=== PATIENT | male | born 1990 ===

== ENCOUNTER 2017-10-16 07:32 | Emergency (ER) | payer MEDICAID ==
--- NOTE | 2017-10-16 08:12 | C.PDOC ---
History Of Present Illness 27 y/o male presents to ED c/o anxiety. Pt states that he was unable to sleep last night after being involved in an argument with is ex-. Pt reports drinking a pint of vodka daily. Denies drinking alcohol today. Notes that he is unemployed. Denies any active physical complaints at this time. Time Seen by Provider: 10/16/17 08:01 Chief Complaint (Nursing): Anxiety History Per: Patient History/Exam Limitations: no limitations Onset/Duration Of Symptoms: Days Current Symptoms Are (Timing): Still Present Suicide/Self Injury Attempted (Context): None Severity: None Pain Scale Rating Of: 0 Associated Symptoms: Anxiety. denies: Suicidal Thoughts, Suicidal Plan Involuntary Hold By: None Recent travel outside of the [place]: No Additional History Per: Patient Past Medical History Reviewed: Historical Data, Nursing Documentation, Vital Signs Vital Signs: Last Vital Signs Temp 97.7 F 10/16/17 08:22 Pulse 85 10/16/17 08:22 Resp 20 10/16/17 08:22 BP 145/90 10/16/17 08:22 Pulse Ox 96 10/16/17 08:22 - Medical History PMH: Asthma Denies: Diabetes, Hepatitis, HIV, HTN, Chronic Kidney Disease, Seizures, Sexually Transmitted Disease Family History: States: Unknown Family Hx - Social History Hx Tobacco Use: Yes Hx Alcohol Use: Yes Hx Substance Use: No - Immunization History Hx Tetanus Toxoid Vaccination: No Hx Influenza Vaccination: No Hx Pneumococcal Vaccination: No Review Of Systems Except As Marked, All Systems Reviewed And Found Negative. Constitutional: Negative for: Fever, Chills Cardiovascular: Negative for: Chest Pain, Palpitations Respiratory: Negative for: Shortness of Breath Gastrointestinal: Negative for: Nausea, Vomiting, Abdominal Pain Psych: Positive for: Anxiety. Negative for: Suicidal ideation Physical Exam - Physical Exam Appears: Non-toxic, No Acute Distress, Other (anxious, not tremulous) Skin: Normal Color, Warm, Dry Head: Atraumatic, Normacephalic Eye(s): bilateral: Normal Inspection Oral Mucosa: Moist Neck: Supple Chest: Symmetrical Cardiovascular: Rhythm Regular, No Murmur Respiratory: Normal Breath Sounds, No Rales, No Rhonchi, No Wheezing Gastrointestinal/Abdominal: Soft, No Tenderness Extremity: Normal ROM Neurological/Psych: Oriented x3, Normal Speech ED Course And Treatment O2 Sat by Pulse Oximetry: 98 Pulse Ox Interpretation: Normal Medical Decision Making Medical Decision Making: continued alcohol abuse domestic issues, no abuse Seen by Crisis, referred for outpatient eval no SI/HI, safe for d/c. Disposition Doctor Will See Patient In The: Office Counseled Patient/Family Regarding: Studies Performed, Diagnosis - Disposition Referrals: Alcoholics Anonymous [Outside] [facility] [Outside] [facility] [Outside] [facility] [Outside] Disposition: HOME/ ROUTINE Disposition Time: 08:11 Condition: GOOD Additional Instructions: follow-up with our outpatient psych resources as instructed during your ED visit Curb your drinking alcohol- makes anxiety and depression worse. Seek AA. Instructions: Abuse of Alcohol (ED), Anxiety (ED) Forms: [facility] (Turkmen) - Clinical Impression Clinical Impression: Alcohol abuse, Anxiety - Scribe Statement The provider has reviewed the documentation as recorded by the Scribe Saleem Mariscal All medical record entries made by the Scribe were at my direction and personally dictated by me. I have reviewed the chart and agree that the record accurately reflects my personal performance of the history, physical exam, medical decision making, and the department course for this patient. I have also personally directed, reviewed, and agree with the discharge instructions and disposition.
[2017-10-16 08:23] VITALS: BP 145/90; PULSE 85; RESP 20; TEMP 97.7
[2017-10-16 09:50] VITALS: O2SAT 98
== END 2017-10-16 08:27 | disposition home or self-care (01) ==
LOC: C.ER 07:32
DX: F41.9 Anxiety disorder, unspecified (principal); F10.10 Alcohol abuse, uncomplicated; Y90.9 Presence of alcohol in blood, level not specified

== ENCOUNTER 2018-04-26 18:03 | Emergency (ER) | payer MEDICAID ==
[2018-04-26 18:18] VITALS: RESP 20; BMI 36.6
[2018-04-26 18:47] LABS: SQUAMOUS EPITHIAL 1 /hpf (0-5); URINE BILIRUBIN 2+ (NEGATIVE); URINE BLOOD 2+ (NEGATIVE); URINE CLARITY Hazy (Clear); URINE COLOR Amber (YELLOW); URINE GLUCOSE (UA) 1+ mg/dL (Normal); URINE HYALINE CAST >20 /lpf (0-2); URINE PROTEIN 3+ mg/dL (NEGATIVE)
[2018-04-26 18:48] LABS: URINE LEUKOCYTE ESTERASE 3+ Leu/uL (Negative)
[2018-04-26 19:05] LABS: BASO % 0.4 % (0.0-2.0); EOS # 0.1 K/uL (0.0-0.7); EOS % 1.1 % (0.0-4.0); LYMPH # 1.5 K/uL (1.0-4.3); MEAN CORPUSCULAR HEMOGLOBIN 32.7 pg (27.0-31.0); MEAN CORPUSCULAR HGB CONC 34.1 g/dL (33.0-37.0); MEAN PLATELET VOLUME 8.6 fL (7.2-11.7); MONO # 1.3 K/uL (0.0-0.8); MONO % 10.7 % (0.0-10.0); NEUT # 9.4 K/uL (1.8-7.0); NEUT % 75.8 % (50.0-75.0); NRBC % 0.3 % (0.0-2.0); RBC 4.9 Mil/uL (4.40-5.90); RED CELL DISTRIBUTION WIDTH 14.5 % (11.5-14.5); WHITE BLOOD COUNT 12.4 K/uL (4.8-10.8)
[2018-04-26 19:14] LABS: BARBITURATES, UR NEGATIVE (NEGATIVE); BENZODIAZEPINES, UR NEGATIVE (NEGATIVE); OPIATES, UR NEGATIVE (NEGATIVE); PHENCYCLIDINE, UR NEGATIVE (NEGATIVE)
--- NOTE | 2018-04-26 19:18 | C.PDOC ---
History Of Present Illness 27 year old male presents to the ER requesting detox from ETOH. Patient denies any medical complaints at this time. Time Seen by Provider: 04/26/18 18:28 Chief Complaint (Nursing): Substance Abuse History Per: Patient History/Exam Limitations: no limitations Onset/Duration Of Symptoms: Hrs Suicide/Self Injury Attempted (Context): None Modifying Factor(s): Alcohol Associated Symptoms: denies: Depression, Suicidal Thoughts Involuntary Hold By: None Recent travel outside of the [place]: No Past Medical History Reviewed: Historical Data, Nursing Documentation, Vital Signs Vital Signs: Last Vital Signs Temp 98.5 F 04/26/18 19:27 Pulse 117 H 04/26/18 19:27 Resp 20 04/26/18 19:27 BP 121/72 04/26/18 19:27 Pulse Ox 99 04/26/18 19:27 - Medical History PMH: Anxiety, Asthma, Depression Family History: States: Unknown Family Hx - Social History Hx Tobacco Use: Yes Hx Alcohol Use: Yes Hx Substance Use: No - Immunization History Hx Tetanus Toxoid Vaccination: No Hx Influenza Vaccination: No Hx Pneumococcal Vaccination: No Review Of Systems Except As Marked, All Systems Reviewed And Found Negative. Constitutional: Negative for: Fever, Chills Cardiovascular: Negative for: Chest Pain Respiratory: Negative for: Shortness of Breath Physical Exam - Physical Exam Additional Physical Exam Comments: Constitutional: No acute distress. Head: Normocephalic. Atraumatic. Eyes: PERRL. ENT: Moist mucous membranes. Neck: Supple. Cardiovascular: Tachycardic. Chest: No tenderness. Respiratory: Clear to auscultation bilaterally. GI: Soft. Nontender. Nondistended. Back: No CVA tenderness. Musculoskeletal: No tenderness or swelling of extremities. Skin: No rash. Neurologic: No tremors or tongue fasciculations. ED Course And Treatment - Laboratory Results Result Diagrams: 04/26/18 19:02 04/26/18 19:02 O2 Sat by Pulse Oximetry: 95 (Room air) Pulse Ox Interpretation: Normal Against Medical Advice - AMA Patient Left Against Medical Advice: The patient declines admission to the hospital and wishes to leave the Emergency Department. This action is against my medical advice. This decision was made with informed refusal. The patient was told that admission to the hospital is necessary. Explanation of the reasons why were discussed. The risks of leaving were explained to the patient and include, but are not limited to, worsening of known or currently unknown conditions, permanent disability and from undiagnosed or untreated conditions. The patient has the capacity to make this informed decision and understands my explanation of the current medical problem and risks of leaving. The patient voluntarily accepts these risks and signed an AMA form documenting our conversation. The patient was given the opportunity to ask questions and reconsider. The patient was encouraged to return to the Emergency Department at any time for further care. Medical Decision Making Medical Decision Making: Patient found to be with UTI, due to tachycardia patient was going to be worked up to rule out sepsis, however, patient wished to leave AMA. I explained to patient the risks of UTI and sepsis, including and disability which he understood and verbalized back. Disposition - Disposition Disposition: AGAINST MEDICAL ADVICE Disposition Time: 19:14 Condition: UNKNOWN Prescriptions: Ciprofloxacin [Cipro] 500 mg PO BID #14 tab Instructions: Urinary Tract Infection, Adult (DC), Leaving Against Medical Advice Forms: [facility] (German), (AMA) Informed Refusal - Clinical Impression Clinical Impression: Left against medical advice, UTI (urinary tract infection) - Scribe Statement The provider has reviewed the documentation as recorded by the Scribe Steve Baxter All medical record entries made by the Scribe were at my direction and personally dictated by me. I have reviewed the chart and agree that the record accurately reflects my personal performance of the history, physical exam, medical decision making, and the department course for this patient. I have also personally directed, reviewed, and agree with the discharge instructions and disposition.
[2018-04-26 19:28] VITALS: BP 121/72; PULSE 117; TEMP 98.5
[2018-04-26 19:35] LABS: ALB/GLOB RATIO 0.8 (1.0-2.1); ALBUMIN 4.2 g/dL (3.5-5.0); ALT/SGPT 69 U/L (21-72); AST/SGOT 246 U/L (17-59); BLOOD UREA NITROGEN 8 mg/dL (9-20); CALCIUM 10.3 mg/dl (8.6-10.4); GFR AFRICAN-AMERICAN > 60; GFR NON-AFRICAN AMERICAN > 60
[2018-04-26 20:00] VITALS: O2SAT 95
== END 2018-04-26 19:29 | disposition left against medical advice (07) ==
LOC: C.ER 18:03
DX: N39.0 Urinary tract infection, site not specified (principal)

== ENCOUNTER 2018-05-23 21:29 | Inpatient (IN) | payer MEDICAID ==
[2018-05-23 21:29] VITALS: BMI 36.6
[2018-05-23 22:13] LABS: BASO # 0.1 K/uL (0.0-0.2); BASO % 0.6 % (0.0-2.0); EOS # 0.3 K/uL (0.0-0.7); LYMPH # 1.1 K/uL (1.0-4.3); LYMPH % 8.5 % (20.0-40.0); MEAN CELL VOLUME 96.4 fL (80.0-94.0); MEAN CORPUSCULAR HGB CONC 34.2 g/dL (33.0-37.0); MEAN PLATELET VOLUME 8.5 fL (7.2-11.7); MONO # 1.6 K/uL (0.0-0.8); NEUT % 76.9 % (50.0-75.0); PLATELET COUNT 394 K/uL (130-400); RBC 4.86 Mil/uL (4.40-5.90); RED CELL DISTRIBUTION WIDTH 14.9 % (11.5-14.5)
[2018-05-23 22:17] LABS: SQUAMOUS EPITHIAL 1 /hpf (0-5); URINE BILIRUBIN 1+ (NEGATIVE); URINE BLOOD NEGATIVE (NEGATIVE); URINE CLARITY Clear (Clear); URINE COLOR Amber (YELLOW); URINE GLUCOSE (UA) NORMAL (Normal); URINE LEUKOCYTE ESTERASE NEG Leu/uL (Negative); URINE PROTEIN NEGATIVE (NEGATIVE)
[2018-05-23] MEDS ORDERED: Iodixanol 320 MG/ML 100 ML BOTTLE IV ONE (22:18)
[2018-05-23 22:19] LABS: INR 1.5; PROTHROMBIN TIME 16.7 SECONDS (9.7-12.2)
[2018-05-23 22:27] LABS: BARBITURATES, UR NEGATIVE (NEGATIVE); BENZODIAZEPINES, UR NEGATIVE (NEGATIVE); OPIATES, UR NEGATIVE (NEGATIVE); PHENCYCLIDINE, UR NEGATIVE (NEGATIVE)
[2018-05-23 22:32] LABS: ALBUMIN 4.3 g/dL (3.5-5.0); ALT/SGPT 40 U/L (21-72); AST/SGOT 168 U/L (17-59); BLOOD UREA NITROGEN 4 mg/dL (9-20); CALCIUM 9.1 mg/dl (8.6-10.4); GFR AFRICAN-AMERICAN > 60; GFR NON-AFRICAN AMERICAN > 60; LIPASE 69 U/L (23-300)
[2018-05-23 22:36] LABS: B-TYPE NATRIURETIC PEPTIDE 38.1 pg/mL (0-450)
[2018-05-23 22:43] LABS: BANDS 1 % (0-2); BASOPHIL 1 % (0-2); EOSINOPHIL 2 % (0-4); LYMPHOCYTE 7 % (20-40); MONOCYTE 12 % (0-10); NEUTROPHIL 77 % (50-75); PLATELET ESTIMATE NORMAL (NORMAL); TOTAL CELLS COUNTED 100
[2018-05-23 22:44] LABS: ANISOCYTOSIS SLIGHT
--- NOTE | 2018-05-23 22:45 | C.PDOC ---
History Of Present Illness 27 year old male presents to the ED c/o enlarged abdomen. Patient reports he has not drank alcohol for a week because he does not want to anymore. Patient was last seen on 04/23 for detox and was diagnosed with a UTI. Patient only took 1 dose of his antibiotics and signed out AMA that day. Time Seen by Provider: 05/23/18 21:43 Chief Complaint (Nursing): Abdominal Pain History Per: Patient History/Exam Limitations: no limitations Onset/Duration Of Symptoms: Days Current Symptoms Are (Timing): Still Present Location Of Pain/Discomfort: Diffuse Radiation Of Pain To:: None Quality Of Discomfort: "Pain" Associated Symptoms: Constipation Exacerbating Factors: None Alleviating Factors: None Recent travel outside of the [place]: No Additional History Per: Patient Past Medical History Reviewed: Historical Data, Nursing Documentation, Vital Signs Vital Signs: Last Vital Signs Temp 100.4 F H 05/23/18 21:35 Pulse 84 05/23/18 21:35 Resp 16 05/23/18 21:35 BP 143/85 05/23/18 21:35 Pulse Ox 98 05/24/18 00:25 - Medical History PMH: Anxiety, Asthma, Depression Denies: Diabetes, Hepatitis, HIV, HTN, Chronic Kidney Disease, Seizures, Sexually Transmitted Disease Surgical History: No Surg Hx Family History: States: Unknown Family Hx - Social History Hx Tobacco Use: Yes Hx Alcohol Use: Yes Hx Substance Use: No - Immunization History Hx Tetanus Toxoid Vaccination: No Hx Influenza Vaccination: No Hx Pneumococcal Vaccination: No Review Of Systems Constitutional: Negative for: Fever, Chills Cardiovascular: Negative for: Chest Pain, Palpitations Respiratory: Negative for: Cough, Shortness of Breath Gastrointestinal: Positive for: Abdominal Pain. Negative for: Nausea, Vomiting Musculoskeletal: Negative for: Back Pain Skin: Negative for: Rash Physical Exam - Physical Exam Appears: Non-toxic, No Acute Distress, Other (Obese male) Skin: Normal Color, Warm, Dry Head: Atraumatic, Normacephalic Eye(s): bilateral: Normal Inspection Oral Mucosa: Moist Neck: Normal ROM, Supple Chest: Symmetrical Cardiovascular: Rhythm Regular Respiratory: Normal Breath Sounds, No Rales, No Rhonchi, No Wheezing Gastrointestinal/Abdominal: Soft, No Tenderness, No Guarding, No Rebound, Ascites (shifting dullness), Other (obese. no caput medusa) Extremity: Normal ROM, No Tenderness, No Swelling Neurological/Psych: Oriented x3, Normal Speech Gait: Steady ED Course And Treatment - Laboratory Results Result Diagrams: 05/23/18 22:07 05/23/18 22:07 Lab Interpretation: Abnormal (AST 168, ALT 40, Alk Phos 329, Total bili 3.0, Ammonia 28 wnl, UDS/Alcohol neg) ECG: Interpreted By Me ECG Rhythm: Sinus Tachycardia ECG Interpretation: Abnormal Rate From EC O2 Sat by Pulse Oximetry: 98 (ON RA) Pulse Ox Interpretation: Normal - Radiology CXR: Interpreted by Me CXR Interpretation: Yes: No Acute Disease - CT Scan/US CT abd/pelvis Other Rad Studies (CT/US): Read By Radiologist, Radiology Report Reviewed CT/US Interpretation: IMPRESSION: There is hepatosplenomegaly. There is moderate ascites in the abdomen and pelvis. Thank you for allowing us to participate in the care of your patient. Dictated and Authenticated by: Michel Lane MD. 05/24/2018 12:19 AM Eastern Time ([place] & [place]) Progress Note: librium 50 mg PO, Reevaluation Time: 00:37 Reassessment Condition: Improved - Physician Consult Information Outcome Of Conversation: 0030: d/w Dr. David Mariscal- medicine industrial methods consultant- ok to admit. Medical Decision Making Medical Decision Making: Impression: abdominal pain Plan: * LAbs * Librium 50 g PO * CT abd/pelvis * Abdomen X-RAy * UA persistent alcohol abuse 2 pts vodka/day now minimal alcohol x 1 week with "sudden" increased abdominal girth c/w hepatosplenomegaly and moderate abdominal ascites. Pt still drinking minimally (as of this morning) and had shaalexandr, CIWA protocol started GI consult Disposition Doctor Will See Patient In The: Hospital Counseled Patient/Family Regarding: Studies Performed, Diagnosis - Disposition Disposition: HOSPITALIZED Disposition Time: 00:39 Condition: GOOD Forms: [facility] (Georgian) - Clinical Impression Clinical Impression: Alcoholism /alcohol abuse, Transaminitis, Liver failure, Ascites due to alcoholic cirrhosis - Scribe Statement The provider has reviewed the documentation as recorded by the Scribe Titi Romero All medical record entries made by the Scribe were at my direction and personally dictated by me. I have reviewed the chart and agree that the record accurately reflects my personal performance of the history, physical exam, medical decision making, and the department course for this patient. I have also personally directed, reviewed, and agree with the discharge instructions and disposition.
[2018-05-24 00:55] VITALS: RESP 20
--- NOTE | 2018-05-24 08:24 | RAD ---
HISTORY: ? ascites/effusion COMPARISON: No prior. TECHNIQUE: Chest PA and lateral FINDINGS: LUNGS: Poor inspiration with low lung volumes, crowded bronchovascular markings and mild bibasilar atelectasis. PLEURA: No significant pleural effusion identified. No pneumothorax apparent. CARDIOVASCULAR: Normal. OSSEOUS STRUCTURES: No significant abnormalities. VISUALIZED UPPER ABDOMEN: Normal. OTHER FINDINGS: None. IMPRESSION: Poor inspiration with low lung volumes, crowded bronchovascular markings and mild bibasilar atelectasis.
--- NOTE | 2018-05-24 08:26 | CP.PCM.HP ---
History of Present Illness - History of Present Illness History of Present Illness: 27-year-old male with history of anxiety asthma depression came in because of swollen stomach or enlarged abdomen history of drinking alcohol for more than a week patient was seen in the detox in the past and denies vomiting denies fever patient diagnosed with DVT in the past and signed out AMA patient started with IV banana bag Present on Admission - Present on Admission Any Indicators Present on Admission: No Past Patient History - Past Medical History & Family History Past Medical History?: Yes - Past Social History Smoking Status: Light Smoker < 10 Cigarettes Daily - CARDIAC Hx Hypertension: No - PULMONARY Hx Asthma: Yes - NEUROLOGICAL Hx Seizures: No - HEENT Hx HEENT Problems: No - RENAL Hx Chronic Kidney Disease: No - ENDOCRINE/METABOLIC Hx Endocrine Disorders: No - HEMATOLOGICAL/ONCOLOGICAL Hx Human Immunodeficiency Virus (HIV): No - INTEGUMENTARY Hx Dermatological Problems: No - MUSCULOSKELETAL/RHEUMATOLOGICAL Hx Musculoskeletal Disorders: Yes Hx Falls: Yes - GASTROINTESTINAL Hx Gastrointestinal Disorders: No - GENITOURINARY/GYNECOLOGICAL Hx Sexually Transmitted Disorders: No - PSYCHIATRIC Hx Anxiety: Yes Hx Depression: Yes Hx Substance Use: No - SURGICAL HISTORY Hx Surgeries: No - ANESTHESIA Hx Anesthesia: No Hx Anesthesia Reactions: No Meds Allergies/Adverse Reactions: Allergies Allergy/AdvReac Type Severity Reaction Status Date / Time No Known Allergies Allergy Verified 05/23/18 21:38 Physical Exam - Constitutional Appears: Well - Head Exam Head Exam: ATRAUMATIC, NORMAL INSPECTION, NORMOCEPHALIC - Eye Exam Eye Exam: EOMI, Normal appearance, PERRL Pupil Exam: NORMAL ACCOMODATION, PERRL - ENT Exam ENT Exam: Mucous Membranes Moist, Normal Exam - Neck Exam Neck exam: Positive for: Normal Inspection - Respiratory Exam Respiratory Exam: Decreased Breath Sounds - Cardiovascular Exam Cardiovascular Exam: REGULAR RHYTHM, +S1, +S2 - GI/Abdominal Exam GI & Abdominal Exam: Diminished Bowel Sounds, Soft - Rectal Exam Rectal Exam: Deferred Results - Vital Signs Recent Vital Signs: Last Vital Signs Temp 99.1 F 05/24/18 02:00 Pulse 118 H 05/24/18 01:26 Resp 20 05/24/18 01:26 BP 135/91 H 05/24/18 01:26 Pulse Ox 96 05/24/18 01:26 - Labs Result Diagrams: 05/23/18 22:07 05/23/18 22:07 Labs: Laboratory Results - last 24 hr 05/23/18 05/23/18 05/23/18 22:07 22:07 22:07 WBC 13.0 H RBC 4.86 Hgb 16.0 Hct 46.9 MCV 96.4 H MCH 33.0 H MCHC 34.2 RDW 14.9 H Plt Count 394 D MPV 8.5 Neut % (Auto) 76.9 H Lymph % (Auto) 8.5 L Mcdonald % (Auto) 12.0 H Eos % (Auto) 2.0 Baso % (Auto) 0.6 Neut # (Auto) 10.0 H Lymph # (Auto) 1.1 Mcdonald # (Auto) 1.6 H Eos # (Auto) 0.3 Baso # (Auto) 0.1 Neutrophils % (Manual) 77 H Band Neutrophils % 1 Lymphocytes % (Manual) 7 L Monocytes % (Manual) 12 H Eosinophils % (Manual) 2 Basophils % (Manual) 1 Platelet Estimate Normal Anisocytosis (manual) Slight PT 16.7 H INR 1.5 APTT 38 H Sodium Potassium Chloride Carbon Dioxide Anion Gap BUN Creatinine Est GFR ( Amer) Est GFR (Non-Af Amer) Random Glucose Lactic Acid Calcium Total Bilirubin AST ALT Alkaline Phosphatase Ammonia Troponin I NT-Pro-B Natriuret Pep Total Protein Albumin Globulin Albumin/Globulin Ratio Lipase Urine Color Claudia Urine Clarity Clear Urine pH 5.0 Ur Specific [place] 1.019 Urine Protein Negative Urine Glucose (UA) Normal Urine Ketones Negative Urine Blood Negative Urine Nitrate Negative Urine Bilirubin 1+ H Urine Urobilinogen 4.0 Ur Leukocyte Esterase Neg Urine WBC (Auto) 3 Urine RBC (Auto) 1 Ur Squamous Epith Cells 1 Urine Opiates Screen Urine Methadone Screen Ur Barbiturates Screen Ur Phencyclidine Scrn Ur Amphetamines Screen U Benzodiazepines Scrn U Oth Cocaine Metabols U Cannabinoids Screen Alcohol, Quantitative 05/23/18 05/23/18 05/23/18 22:07 22:07 22:07 WBC RBC Hgb Hct MCV MCH MCHC RDW Plt Count MPV Neut % (Auto) Lymph % (Auto) Mcdonald % (Auto) Eos % (Auto) Baso % (Auto) Neut # (Auto) Lymph # (Auto) Mcdonald # (Auto) Eos # (Auto) Baso # (Auto) Neutrophils % (Manual) Band Neutrophils % Lymphocytes % (Manual) Monocytes % (Manual) Eosinophils % (Manual) Basophils % (Manual) Platelet Estimate Anisocytosis (manual) PT INR APTT Sodium 139 Potassium 5.1 Chloride 103 Carbon Dioxide 25 Anion Gap 17 BUN 4 L Creatinine 0.5 L Est GFR ( Amer) > 60 Est GFR (Non-Af Amer) > 60 Random Glucose 96 Lactic Acid Calcium 9.1 Total Bilirubin 3.0 H AST 168 H D ALT 40 Alkaline Phosphatase 329 H D Ammonia 28 Troponin I < 0.0120 NT-Pro-B Natriuret Pep 38.1 Total Protein 8.6 H Albumin 4.3 Globulin 4.3 H Albumin/Globulin Ratio 1.0 Lipase 69 Urine Color Urine Clarity Urine pH Ur Specific [place] Urine Protein Urine Glucose (UA) Urine Ketones Urine Blood Urine Nitrate Urine Bilirubin Urine Urobilinogen Ur Leukocyte Esterase Urine WBC (Auto) Urine RBC (Auto) Ur Squamous Epith Cells Urine Opiates Screen Negative Urine Methadone Screen Negative Ur Barbiturates Screen Negative Ur Phencyclidine Scrn Negative Ur Amphetamines Screen Negative U Benzodiazepines Scrn Negative U Oth Cocaine Metabols Negative U Cannabinoids Screen Negative Alcohol, Quantitative < 10 05/23/18 22:07 WBC RBC Hgb Hct MCV MCH MCHC RDW Plt Count MPV Neut % (Auto) Lymph % (Auto) Mcdonald % (Auto) Eos % (Auto) Baso % (Auto) Neut # (Auto) Lymph # (Auto) Mcdonald # (Auto) Eos # (Auto) Baso # (Auto) Neutrophils % (Manual) Band Neutrophils % Lymphocytes % (Manual) Monocytes % (Manual) Eosinophils % (Manual) Basophils % (Manual) Platelet Estimate Anisocytosis (manual) PT INR APTT Sodium Potassium Chloride Carbon Dioxide Anion Gap BUN Creatinine Est GFR ( Amer) Est GFR (Non-Af Amer) Random Glucose Lactic Acid 1.2 Calcium Total Bilirubin AST ALT Alkaline Phosphatase Ammonia Troponin I NT-Pro-B Natriuret Pep Total Protein Albumin Globulin Albumin/Globulin Ratio Lipase Urine Color Urine Clarity Urine pH Ur Specific [place] Urine Protein Urine Glucose (UA) Urine Ketones Urine Blood Urine Nitrate Urine Bilirubin Urine Urobilinogen Ur Leukocyte Esterase Urine WBC (Auto) Urine RBC (Auto) Ur Squamous Epith Cells Urine Opiates Screen Urine Methadone Screen Ur Barbiturates Screen Ur Phencyclidine Scrn Ur Amphetamines Screen U Benzodiazepines Scrn U Oth Cocaine Metabols U Cannabinoids Screen Alcohol, Quantitative Assessment & Plan (1) Ascites due to alcoholic cirrhosis Status: Acute (2) Liver failure Status: Acute (3) Transaminitis Status: Acute (4) Alcoholism /alcohol abuse Status: Chronic (5) Abdominal pain Status: Acute (6) Alcohol abuse Status: Acute (7) Alcohol intoxication Status: Acute (8) Anxiety Status: Acute (9) Auditory hallucinations Status: Acute (10) Left against medical advice Status: Acute (11) Panic attack Status: Acute (12) Psychosis Status: Acute (13) Rhabdomyolysis Status: Acute (14) UTI (urinary tract infection) Status: Acute - Assessment and Plan (Free Text) Plan: IV banana bag Lasix Protonix Lovenox GI consult Post possible ascites stepping Patient had ascites CT abdomen
[2018-05-24] MEDS: Pantoprazole 40 mg EC Tab PO SCH (09:52)
[2018-05-24] MEDS ORDERED: Enoxaparin 40 mg Syringe SC SCH (10:00)
[2018-05-24] MEDS ORDERED: Multivitamin (MVI) 10 ML, Thiamine 100 MG, Folic Acid 1 MG in Sodium Chloride 0.9% 1,00... IV ONE (10:00)
--- NOTE | 2018-05-24 10:34 | CT ---
PROCEDURE: CT Abdomen and Pelvis with Oral contrast. HISTORY: ETOH abuse, ? cirrhosis/ascites COMPARISON: None. TECHNIQUE: Contiguous axial images of the abdomen and pelvis following intravenous injection of approximately 100 cc Omnipaque 320 contrast material. Additional 2D sagittal and coronal reformats generated. This CT exam was performed using one or more of the following dose reduction techniques: Automated exposure control, adjustment of the mA and/or kV according to patient size, and/or use of iterative reconstruction technique. Radiation dose: Total exam DLP = 1232.03 MGy-cm. FINDINGS: LOWER THORAX: Mild atelectasis/ scarring changes both lightly bases right greater than left. No evidence of basilar pneumothorax or effusion. Heart size is within range of normal. No significant pericardial effusion. LIVER: Liver is markedly enlarged measuring over 26 cm in CC dimension. . There is a large amount of abdominal and pelvic ascites. Findings may represent cirrhosis. No obvious hepatic mass or collection. Portal and splenic veins are opacified. GALLBLADDER AND BILE DUCTS: Gallbladder appears incompletely distended which presumably accounts for slight thick-walled appearance. Note that ascites may contribute to wall thickening. The possibility of cholecystitis cannot be excluded. No obvious intraluminal gallbladder calculi PANCREAS: Unremarkable. No mass. No ductal dilatation. SPLEEN: Spleen is enlarged measuring over 14 cm in AP dimension. ADRENALS: Unremarkable. KIDNEYS AND URETERS: Unremarkable. No stone or hydronephrosis. BLADDER: Urinary bladder incompletely distended which presumably accounts for slight thick-walled appearance. . Muscular hypertrophy may contribute. REPRODUCTIVE: Unremarkable. APPENDIX: The appendix is not seen with complete certainty however what could represent partially visualized appendix best seen on axial image number [id number]. BOWEL: Evaluation of the bowel is limited due to the lack of oral contrast material as well as a large amount of ascites. Cysts evaluation further limited due to collapse of the stomach, most of the small and large bowel. PERITONEUM: Unremarkable. No fluid collection. No free air. Fat containing umbilical hernia. . LYMPH NODES: Few small nonspecific retroperitoneal lymph nodes. The. VASCULATURE: Unremarkable. No aortic aneurysm. BONES: Mild multilevel degenerative spondylosis of the lower thoracic and lumbar spine. Minor chronic anterior wedge deformities of several lower thoracic segments. The OTHER FINDINGS: None. IMPRESSION: Hepatosplenomegaly with a moderately large amount of abdominal and pelvic ascites. Rule out cirrhosis. Mild wall thickening of the gallbladder likely due to incomplete distention and abdominal ascites. No intraluminal calculi seen. Mild atelectasis/scarring changes both lung bases. .
--- NOTE | 2018-05-24 19:39 | CP.PCM.CON ---
<Richard Mariscal - Last Filed: 05/24/18 19:31> History of Present Illness - History of Present Illness History of Present Illness: Initial PGY5 GI Consult Martin Echeverria is a 27-year-old male w/ history of anxiety, asthma, depression who presented to the ED with complaints of abd pain and distention. He states that he has noticed gradual distention of his abd for 1 week. He has an extensive hx of ETOH use. He previously noted to drink 1 L vodka daily. He was recently in the ER an was recommended to be treated for UTI, but left AMA. Patient was in detox. He denies any nausea, vomiting or diarrhea. He notes vague abd discomfort with his distention. Denies any fever, chills or diaphoresis.He states that his last drink was 1 week prior PMHx: DVT, alcohol abuse PSHx: denies Social hx: +ETOH, smoking Family Hx: Reviewed; denies any GI malignancy Endo hx: denies ROS: 12 point ROS conducted, neg other than above Past Patient History - Past Medical History & Family History Past Medical History?: Yes - Past Social History Smoking Status: Light Smoker < 10 Cigarettes Daily - CARDIAC Hx Hypertension: No - PULMONARY Hx Asthma: Yes - NEUROLOGICAL Hx Seizures: No - HEENT Hx HEENT Problems: No - RENAL Hx Chronic Kidney Disease: No - ENDOCRINE/METABOLIC Hx Endocrine Disorders: No - HEMATOLOGICAL/ONCOLOGICAL Hx Human Immunodeficiency Virus (HIV): No - INTEGUMENTARY Hx Dermatological Problems: No - MUSCULOSKELETAL/RHEUMATOLOGICAL Hx Musculoskeletal Disorders: Yes Hx Falls: Yes - GASTROINTESTINAL Hx Gastrointestinal Disorders: No - GENITOURINARY/GYNECOLOGICAL Hx Sexually Transmitted Disorders: No - PSYCHIATRIC Hx Anxiety: Yes Hx Depression: Yes Hx Substance Use: No - SURGICAL HISTORY Hx Surgeries: No - ANESTHESIA Hx Anesthesia: No Hx Anesthesia Reactions: No Meds Allergies/Adverse Reactions: Allergies Allergy/AdvReac Type Severity Reaction Status Date / Time No Known Allergies Allergy Verified 05/23/18 21:38 - Medications Medications: Current Medications Chlordiazepoxide (Librium) 25 mg PO TID PRN PRN Reason: tremor Last Admin: 05/24/18 16:05 Dose: 25 mg Furosemide (Lasix) 40 mg IVP DAILY [facility] Last Admin: 05/24/18 09:52 Dose: 40 mg Multivitamins/Vitamin C 10 ml/Thiamine HCl 100 mg/ Folic Acid 1 mg/ Sodium Chloride 1,011.2 mls @ 50 mls/hr IV .[id number] ONE Stop: 05/25/18 06:13 Last Admin: 05/24/18 09:52 Dose: 50 mls/hr Pantoprazole Sodium (Protonix Ec Tab) 40 mg PO DAILY [facility] Last Admin: 05/24/18 09:52 Dose: 40 mg Physical Exam - Constitutional Appears: Well, No Acute Distress - Head Exam Head Exam: ATRAUMATIC, NORMOCEPHALIC - Eye Exam Eye Exam: Normal appearance - ENT Exam ENT Exam: Mucous Membranes Moist, Normal Exam - Neck Exam Neck exam: Positive for: Normal Inspection - Respiratory Exam Respiratory Exam: Clear to Auscultation Bilateral, NORMAL BREATHING PATTERN. absent: Rales, Rhonchi, Wheezes, Respiratory Distress - Cardiovascular Exam Cardiovascular Exam: REGULAR RHYTHM, +S1, +S2 - GI/Abdominal Exam GI & Abdominal Exam: Distended, Normal Bowel Sounds, Soft. absent: Guarding, Organomegaly, Pulsatile Mass, Rebound, Rigid - Extremities Exam Extremities exam: Negative for: joint swelling, pedal edema - Neurological Exam Neurological exam: Alert, Oriented x3 - Psychiatric Exam Psychiatric exam: Normal Affect, Normal Mood - Skin Skin Exam: Dry, Intact, Normal Color, Warm Results - Vital Signs Recent Vital Signs: Last Vital Signs Temp 98.8 F 05/24/18 16:00 Pulse 92 H 05/24/18 16:00 Resp 20 05/24/18 16:00 BP 138/84 05/24/18 16:00 Pulse Ox 95 05/24/18 16:00 - Labs Result Diagrams: 05/23/18 22:07 05/23/18 22:07 Labs: Laboratory Results - last 24 hr 05/23/18 05/23/18 05/23/18 22:07 22:07 22:07 WBC 13.0 H RBC 4.86 Hgb 16.0 Hct 46.9 MCV 96.4 H MCH 33.0 H MCHC 34.2 RDW 14.9 H Plt Count 394 D MPV 8.5 Neut % (Auto) 76.9 H Lymph % (Auto) 8.5 L [place] % (Auto) 12.0 H Eos % (Auto) 2.0 Baso % (Auto) 0.6 Neut # (Auto) 10.0 H Lymph # (Auto) 1.1 [place] # (Auto) 1.6 H Eos # (Auto) 0.3 Baso # (Auto) 0.1 Neutrophils % (Manual) 77 H Band Neutrophils % 1 Lymphocytes % (Manual) 7 L Monocytes % (Manual) 12 H Eosinophils % (Manual) 2 Basophils % (Manual) 1 Platelet Estimate Normal Anisocytosis (manual) Slight PT 16.7 H INR 1.5 APTT 38 H Sodium Potassium Chloride Carbon Dioxide Anion Gap BUN Creatinine Est GFR ( Amer) Est GFR (Non-Af Amer) Random Glucose Lactic Acid Calcium Total Bilirubin AST ALT Alkaline Phosphatase Ammonia Troponin I NT-Pro-B Natriuret Pep Total Protein Albumin Globulin Albumin/Globulin Ratio Lipase Urine Color Claudia Urine Clarity Clear Urine pH 5.0 Ur Specific [place] 1.019 Urine Protein Negative Urine Glucose (UA) Normal Urine Ketones Negative Urine Blood Negative Urine Nitrate Negative Urine Bilirubin 1+ H Urine Urobilinogen 4.0 Ur Leukocyte Esterase Neg Urine WBC (Auto) 3 Urine RBC (Auto) 1 Ur Squamous Epith Cells 1 Urine Opiates Screen Urine Methadone Screen Ur Barbiturates Screen Ur Phencyclidine Scrn Ur Amphetamines Screen U Benzodiazepines Scrn U Oth Cocaine Metabols U Cannabinoids Screen Alcohol, Quantitative IgG 05/23/18 05/23/18 05/23/18 22:07 22:07 22:07 WBC RBC Hgb Hct MCV MCH MCHC RDW Plt Count MPV Neut % (Auto) Lymph % (Auto) [place] % (Auto) Eos % (Auto) Baso % (Auto) Neut # (Auto) Lymph # (Auto) [place] # (Auto) Eos # (Auto) Baso # (Auto) Neutrophils % (Manual) Band Neutrophils % Lymphocytes % (Manual) Monocytes % (Manual) Eosinophils % (Manual) Basophils % (Manual) Platelet Estimate Anisocytosis (manual) PT INR APTT Sodium 139 Potassium 5.1 Chloride 103 Carbon Dioxide 25 Anion Gap 17 BUN 4 L Creatinine 0.5 L Est GFR ( Amer) > 60 Est GFR (Non-Af Amer) > 60 Random Glucose 96 Lactic Acid Calcium 9.1 Total Bilirubin 3.0 H AST 168 H D ALT 40 Alkaline Phosphatase 329 H D Ammonia 28 Troponin I < 0.0120 NT-Pro-B Natriuret Pep 38.1 Total Protein 8.6 H Albumin 4.3 Globulin 4.3 H Albumin/Globulin Ratio 1.0 Lipase 69 Urine Color Urine Clarity Urine pH Ur Specific [place] Urine Protein Urine Glucose (UA) Urine Ketones Urine Blood Urine Nitrate Urine Bilirubin Urine Urobilinogen Ur Leukocyte Esterase Urine WBC (Auto) Urine RBC (Auto) Ur Squamous Epith Cells Urine Opiates Screen Negative Urine Methadone Screen Negative Ur Barbiturates Screen Negative Ur Phencyclidine Scrn Negative Ur Amphetamines Screen Negative U Benzodiazepines Scrn Negative U Oth Cocaine Metabols Negative U Cannabinoids Screen Negative Alcohol, Quantitative < 10 IgG 05/23/18 05/24/18 22:07 11:45 WBC RBC Hgb Hct MCV MCH MCHC RDW Plt Count MPV Neut % (Auto) Lymph % (Auto) [place] % (Auto) Eos % (Auto) Baso % (Auto) Neut # (Auto) Lymph # (Auto) [place] # (Auto) Eos # (Auto) Baso # (Auto) Neutrophils % (Manual) Band Neutrophils % Lymphocytes % (Manual) Monocytes % (Manual) Eosinophils % (Manual) Basophils % (Manual) Platelet Estimate Anisocytosis (manual) PT INR APTT Sodium Potassium Chloride Carbon Dioxide Anion Gap BUN Creatinine Est GFR ( Amer) Est GFR (Non-Af Amer) Random Glucose Lactic Acid 1.2 Calcium Total Bilirubin AST ALT Alkaline Phosphatase Ammonia Troponin I NT-Pro-B Natriuret Pep Total Protein Albumin Globulin Albumin/Globulin Ratio Lipase Urine Color Urine Clarity Urine pH Ur Specific [place] Urine Protein Urine Glucose (UA) Urine Ketones Urine Blood Urine Nitrate Urine Bilirubin Urine Urobilinogen Ur Leukocyte Esterase Urine WBC (Auto) Urine RBC (Auto) Ur Squamous Epith Cells Urine Opiates Screen Urine Methadone Screen Ur Barbiturates Screen Ur Phencyclidine Scrn Ur Amphetamines Screen U Benzodiazepines Scrn U Oth Cocaine Metabols U Cannabinoids Screen Alcohol, Quantitative IgG 1351.1 Assessment & Plan - Assessment and Plan (Free Text) Assessment: Martin Echeverria is a 27M w/ hx of ETOH abuse, DVT who presents with abd distention Abd distention Ascities, etiology cirrhosis? Cirrhosis? 2/2 ETOH Alcohol Abuse Alcohol hepatitis MELD:15 DF:29.6 Plan: -DF <32, no indication for steroids -MELD: 15, warrants outpt eval from liver center after alcohol abstinence -recommend alcohol abstinence -will r/o hepatitis and autoimmune etiology for cirrhosis -lactulose daily for 2 BM daily -will need IR consult for paracentesis -send fluid for SAAG, total protein, albumin, gram stain -will eventually need LASix and aldactone as oupt -will need oupt EGD for variceal screening. D/W Dr. Ledezma <Emmanuel Ledezma - Last Filed: 05/24/18 20:00> Meds - Medications Medications: Current Medications Chlordiazepoxide (Librium) 25 mg PO TID PRN PRN Reason: tremor Last Admin: 05/24/18 16:05 Dose: 25 mg Furosemide (Lasix) 40 mg IVP DAILY [facility] Last Admin: 05/24/18 09:52 Dose: 40 mg Multivitamins/Vitamin C 10 ml/Thiamine HCl 100 mg/ Folic Acid 1 mg/ Sodium Chloride 1,011.2 mls @ 50 mls/hr IV .[id number] ONE Stop: 05/25/18 06:13 Last Admin: 05/24/18 09:52 Dose: 50 mls/hr Lactulose (Enulose) 20 gm PO HS [facility] Pantoprazole Sodium (Protonix Ec Tab) 40 mg PO DAILY [facility] Last Admin: 05/24/18 09:52 Dose: 40 mg Results - Vital Signs Recent Vital Signs: Last Vital Signs Temp 98.8 F 05/24/18 16:00 Pulse 92 H 05/24/18 16:00 Resp 20 05/24/18 16:00 BP 138/84 05/24/18 16:00 Pulse Ox 95 05/24/18 16:00 - Labs Result Diagrams: 05/23/18 22:07 05/23/18 22:07 Labs: Laboratory Results - last 24 hr 05/23/18 05/23/18 05/23/18 22:07 22:07 22:07 WBC 13.0 H RBC 4.86 Hgb 16.0 Hct 46.9 MCV 96.4 H MCH 33.0 H MCHC 34.2 RDW 14.9 H Plt Count 394 D MPV 8.5 Neut % (Auto) 76.9 H Lymph % (Auto) 8.5 L [place] % (Auto) 12.0 H Eos % (Auto) 2.0 Baso % (Auto) 0.6 Neut # (Auto) 10.0 H Lymph # (Auto) 1.1 [place] # (Auto) 1.6 H Eos # (Auto) 0.3 Baso # (Auto) 0.1 Neutrophils % (Manual) 77 H Band Neutrophils % 1 Lymphocytes % (Manual) 7 L Monocytes % (Manual) 12 H Eosinophils % (Manual) 2 Basophils % (Manual) 1 Platelet Estimate Normal Anisocytosis (manual) Slight PT 16.7 H INR 1.5 APTT 38 H Sodium Potassium Chloride Carbon Dioxide Anion Gap BUN Creatinine Est GFR ( Amer) Est GFR (Non-Af Amer) Random Glucose Lactic Acid Calcium Total Bilirubin AST ALT Alkaline Phosphatase Ammonia Troponin I NT-Pro-B Natriuret Pep Total Protein Albumin Globulin Albumin/Globulin Ratio Lipase Urine Color Claud[place] Urine Clarity Clear Urine pH 5.0 Ur Specific [place] 1.019 Urine Protein Negative Urine Glucose (UA) Normal Urine Ketones Negative Urine Blood Negative Urine Nitrate Negative Urine Bilirubin 1+ H Urine Urobilinogen 4.0 Ur Leukocyte Esterase Neg Urine WBC (Auto) 3 Urine RBC (Auto) 1 Ur Squamous Epith Cells 1 Urine Opiates Screen Urine Methadone Screen Ur Barbiturates Screen Ur Phencyclidine Scrn Ur Amphetamines Screen U Benzodiazepines Scrn U Oth Cocaine Metabols U Cannabinoids Screen Alcohol, Quantitative IgG 05/23/18 05/23/18 05/23/18 22:07 22:07 22:07 WBC RBC Hgb Hct MCV MCH MCHC RDW Plt Count MPV Neut % (Auto) Lymph % (Auto) [place] % (Auto) Eos % (Auto) Baso % (Auto) Neut # (Auto) Lymph # (Auto) [place] # (Auto) Eos # (Auto) Baso # (Auto) Neutrophils % (Manual) Band Neutrophils % Lymphocytes % (Manual) Monocytes % (Manual) Eosinophils % (Manual) Basophils % (Manual) Platelet Estimate Anisocytosis (manual) PT INR APTT Sodium 139 Potassium 5.1 Chloride 103 Carbon Dioxide 25 Anion Gap 17 BUN 4 L Creatinine 0.5 L Est GFR ( Amer) > 60 Est GFR (Non-Af Amer) > 60 Random Glucose 96 Lactic Acid Calcium 9.1 Total Bilirubin 3.0 H AST 168 H D ALT 40 Alkaline Phosphatase 329 H D Ammonia 28 Troponin I < 0.0120 NT-Pro-B Natriuret Pep 38.1 Total Protein 8.6 H Albumin 4.3 Globulin 4.3 H Albumin/Globulin Ratio 1.0 Lipase 69 Urine Color Urine Clarity Urine pH Ur Specific [place] Urine Protein Urine Glucose (UA) Urine Ketones Urine Blood Urine Nitrate Urine Bilirubin Urine Urobilinogen Ur Leukocyte Esterase Urine WBC (Auto) Urine RBC (Auto) Ur Squamous Epith Cells Urine Opiates Screen Negative Urine Methadone Screen Negative Ur Barbiturates Screen Negative Ur Phencyclidine Scrn Negative Ur Amphetamines Screen Negative U Benzodiazepines Scrn Negative U Oth Cocaine Metabols Negative U Cannabinoids Screen Negative Alcohol, Quantitative < 10 IgG 05/23/18 05/24/18 22:07 11:45 WBC RBC Hgb Hct MCV MCH MCHC RDW Plt Count MPV Neut % (Auto) Lymph % (Auto) [place] % (Auto) Eos % (Auto) Baso % (Auto) Neut # (Auto) Lymph # (Auto) [place] # (Auto) Eos # (Auto) Baso # (Auto) Neutrophils % (Manual) Band Neutrophils % Lymphocytes % (Manual) Monocytes % (Manual) Eosinophils % (Manual) Basophils % (Manual) Platelet Estimate Anisocytosis (manual) PT INR APTT Sodium Potassium Chloride Carbon Dioxide Anion Gap BUN Creatinine Est GFR ( Amer) Est GFR (Non-Af Amer) Random Glucose Lactic Acid 1.2 Calcium Total Bilirubin AST ALT Alkaline Phosphatase Ammonia Troponin I NT-Pro-B Natriuret Pep Total Protein Albumin Globulin Albumin/Globulin Ratio Lipase Urine Color Urine Clarity Urine pH Ur Specific [place] Urine Protein Urine Glucose (UA) Urine Ketones Urine Blood Urine Nitrate Urine Bilirubin Urine Urobilinogen Ur Leukocyte Esterase Urine WBC (Auto) Urine RBC (Auto) Ur Squamous Epith Cells Urine Opiates Screen Urine Methadone Screen Ur Barbiturates Screen Ur Phencyclidine Scrn Ur Amphetamines Screen U Benzodiazepines Scrn U Oth Cocaine Metabols U Cannabinoids Screen Alcohol, Quantitative IgG 1351.1 Attending/Attestation - Attestation I have personally seen and examined this patient.: Yes I have fully participated in the care of the patient.: Yes I have reviewed all pertinent clinical information: Yes Notes (Text): 05/24/18 19:58 This is a 27 yr old M with history of ETOH abuse, DVT who presents with abdominal distention in setting of alcoholic cirrhosis and ascites. MELD:15. Hepatitis and autoimmune serologies and lactulose daily. IR for paracentesis. Outpatient EGD for varices. Low salt diet
--- NOTE | 2018-05-25 08:41 | CP.PCM.PN ---
Subjective - Date & Time of Evaluation Date of Evaluation: 05/25/18 Time of Evaluation: 07:20 - Subjective Subjective: clinically same Objective - Vital Signs/Intake and Output Vital Signs (last 24 hours): Temp Pulse Resp BP Pulse Ox 98.7 F 97 H 20 139/90 97 05/25/18 08:00 05/25/18 08:00 05/25/18 08:00 05/25/18 08:00 05/25/18 08:00 Intake and Output: 05/25/18 05/25/18 06:59 18:59 Intake Total 590 Balance 590 - Medications Medications: Current Medications Chlordiazepoxide (Librium) 25 mg PO TID PRN PRN Reason: tremor Last Admin: 05/24/18 16:05 Dose: 25 mg Furosemide (Lasix) 40 mg IVP DAILY [facility] Last Admin: 05/24/18 09:52 Dose: 40 mg Lactulose (Enulose) 20 gm PO HS [facility] Last Admin: 05/24/18 21:17 Dose: 20 gm Pantoprazole Sodium (Protonix Ec Tab) 40 mg PO DAILY [facility] Last Admin: 05/24/18 09:52 Dose: 40 mg - Labs Labs: 05/23/18 22:07 05/23/18 22:07 PT 16.7 SECONDS (9.7-12.2) H 05/23/18 22:07 INR 1.5 05/23/18 22:07 APTT 38 SECONDS (21-34) H 05/23/18 22:07 - Constitutional Appears: Well - Head Exam Head Exam: ATRAUMATIC, NORMAL INSPECTION, NORMOCEPHALIC - Eye Exam Eye Exam: EOMI, Normal appearance, PERRL Pupil Exam: NORMAL ACCOMODATION, PERRL - ENT Exam ENT Exam: Mucous Membranes Moist, Normal Exam - Neck Exam Neck Exam: Full ROM, Normal Inspection. absent: Lymphadenopathy - Respiratory Exam Respiratory Exam: Decreased Breath Sounds - Cardiovascular Exam Cardiovascular Exam: REGULAR RHYTHM, +S1, +S2 - GI/Abdominal Exam GI & Abdominal Exam: Soft, Diminished Bowel Sounds - Rectal Exam Rectal Exam: Deferred Assessment and Plan (1) Ascites due to alcoholic cirrhosis Status: Acute (2) Liver failure Status: Acute (3) Transaminitis Status: Acute (4) Alcoholism /alcohol abuse Status: Chronic (5) Abdominal pain Status: Acute (6) Alcohol abuse Status: Acute (7) Alcohol intoxication Status: Acute (8) Anxiety Status: Acute (9) Auditory hallucinations Status: Acute (10) Left against medical advice Status: Acute (11) Panic attack Status: Acute (12) Psychosis Status: Acute (13) Rhabdomyolysis Status: Acute (14) UTI (urinary tract infection) Status: Acute - Assessment and Plan (Free Text) Plan: For ascites stepping Follow-up with GI Lasix Librium as needed Banana bag Watch for alcohol withdrawal syndrome Alcohol accidents advised
[2018-05-25 09:19] LABS: HEPATITIS A IGM NEGATIVE (NEGATIVE); HEPATITIS B CORE AB NEGATIVE (NEGATIVE)
[2018-05-25 09:31] LABS: HEPATITIS C ANTIBODY NEGATIVE (NEGATIVE)
[2018-05-25 09:45] LABS: HEPATITIS B SURFACE AG Negative (NEGATIVE)
[2018-05-25] MEDS: Pantoprazole 40 mg EC Tab PO SCH (10:44)
[2018-05-26] MEDS: Pantoprazole 40 mg EC Tab PO SCH (10:03)
--- NOTE | 2018-05-26 15:32 | PCM.SURG1 ---
Surgeon's Initial Post Op Note - Surgeon's Notes Surgeon: Al King MD Business Unit Manager: NONE Type of Anesthesia: Local Pre-Operative Diagnosis: Cirrhosis, ascites Operative Findings: US showed moderate ascites Post-Operative Diagnosis: Cirrhosis, ascites Operation Performed: US guided paracentesis Specimen/Specimens Removed: 4 liters of straw colored fluid Estimated Blood Loss: EBL {In ML}: 0 Blood Products Given: N/A Drains Used: No Drains Post-Op Condition: Fair Date of Surgery/Procedure: 05/26/18 Time of Surgery/Procedure: 15:30
--- NOTE | 2018-05-26 15:59 | CARD ---
APPROVED REPORT EKG Measurement Heart [id number] FL [id number] [id number] <Conclusion> Sinus tachycardia Otherwise normal ECG
[2018-05-26 16:28] LABS: BODY FLUID TYPE PERITONEAL/ASCITES
[2018-05-26 17:20] LABS: BF GROSS APPEARANCE SL CLOUDY (CLEAR)
[2018-05-26 17:21] LABS: BODY FLUID MONO/MACROPHAGE 1 % (0-0); BODY FLUID TOTAL COUNT 100 (0-0)
--- NOTE | 2018-05-26 20:53 | CP.PCM.PN ---
Subjective - Date & Time of Evaluation Date of Evaluation: 05/26/18 Time of Evaluation: 07:15 - Subjective Subjective: clinically same Objective - Vital Signs/Intake and Output Vital Signs (last 24 hours): Temp Pulse Resp BP Pulse Ox 97.5 F L 85 20 124/74 95 05/26/18 08:52 05/26/18 08:52 05/26/18 08:52 05/26/18 10:04 05/26/18 08:52 Intake and Output: 05/26/18 05/27/18 18:59 06:59 Intake Total 480 Balance 480 - Medications Medications: Current Medications Chlordiazepoxide (Librium) 25 mg PO TID PRN PRN Reason: tremor Last Admin: 05/26/18 18:53 Dose: 25 mg Furosemide (Lasix) 40 mg IVP DAILY [facility] Last Admin: 05/26/18 10:04 Dose: 40 mg Lactulose (Enulose) 20 gm PO HS [facility] Last Admin: 05/25/18 21:38 Dose: 20 gm Pantoprazole Sodium (Protonix Ec Tab) 40 mg PO DAILY [facility] Last Admin: 05/26/18 10:03 Dose: 40 mg - Labs Labs: 05/23/18 22:07 05/23/18 22:07 PT 16.7 SECONDS (9.7-12.2) H 05/23/18 22:07 INR 1.5 05/23/18 22:07 APTT 38 SECONDS (21-34) H 05/23/18 22:07 - Constitutional Appears: Well - Head Exam Head Exam: ATRAUMATIC, NORMAL INSPECTION, NORMOCEPHALIC - Eye Exam Eye Exam: EOMI, Normal appearance, PERRL Pupil Exam: NORMAL ACCOMODATION, PERRL - ENT Exam ENT Exam: Mucous Membranes Moist, Normal Exam - Neck Exam Neck Exam: Full ROM, Normal Inspection. absent: Lymphadenopathy - Respiratory Exam Respiratory Exam: Decreased Breath Sounds - Cardiovascular Exam Cardiovascular Exam: REGULAR RHYTHM, +S1, +S2 - GI/Abdominal Exam GI & Abdominal Exam: Soft, Diminished Bowel Sounds - Rectal Exam Rectal Exam: Deferred Assessment and Plan (1) Ascites due to alcoholic cirrhosis Status: Acute (2) Liver failure Status: Acute (3) Transaminitis Status: Acute (4) Alcoholism /alcohol abuse Status: Chronic (5) Abdominal pain Status: Acute (6) Alcohol abuse Status: Acute (7) Alcohol intoxication Status: Acute (8) Anxiety Status: Acute (9) Auditory hallucinations Status: Acute (10) Left against medical advice Status: Acute (11) Panic attack Status: Acute (12) Psychosis Status: Acute (13) Rhabdomyolysis Status: Acute (14) UTI (urinary tract infection) Status: Acute - Assessment and Plan (Free Text) Plan: For ascites stepping continue Lasix Continue lactulose Follow-up with the GI doctor As ordered
[2018-05-27 07:36] LABS: BASO # 0.1 K/uL (0.0-0.2); BASO % 0.4 % (0.0-2.0); EOS # 0.3 K/uL (0.0-0.7); EOS % 2.4 % (0.0-4.0); HEMOGLOBIN 14.3 g/dL (12.0-18.0); LYMPH % 7.4 % (20.0-40.0); MEAN CELL VOLUME 96.1 fL (80.0-94.0); MEAN CORPUSCULAR HEMOGLOBIN 33.3 pg (27.0-31.0); MEAN CORPUSCULAR HGB CONC 34.7 g/dL (33.0-37.0); MEAN PLATELET VOLUME 8.9 fL (7.2-11.7); MONO # 1.3 K/uL (0.0-0.8); MONO % 9.6 % (0.0-10.0); NEUT # 10.8 K/uL (1.8-7.0); NEUT % 80.2 % (50.0-75.0); PLATELET COUNT 343 K/uL (130-400); RBC 4.28 Mil/uL (4.40-5.90); RED CELL DISTRIBUTION WIDTH 14.6 % (11.5-14.5); WHITE BLOOD COUNT 13.5 K/uL (4.8-10.8)
[2018-05-27 08:00] LABS: ALBUMIN 3.5 g/dL (3.5-5.0); ALT/SGPT 46 U/L (21-72); AST/SGOT 118 U/L (17-59); BLOOD UREA NITROGEN 6 mg/dL (9-20); CALCIUM 8.9 mg/dl (8.6-10.4); GFR AFRICAN-AMERICAN > 60; GFR NON-AFRICAN AMERICAN > 60
[2018-05-27 08:56] LABS: BANDS 1 % (0-2); LYMPHOCYTE 5 % (20-40); MONOCYTE 4 % (0-10); NEUTROPHIL 90 % (50-75); TOTAL CELLS COUNTED 100
[2018-05-27 08:57] LABS: PLATELET ESTIMATE NORMAL (NORMAL)
[2018-05-27] MEDS: Pantoprazole 40 mg EC Tab PO SCH (09:44)
--- NOTE | 2018-05-27 11:11 | CP.PCM.PN ---
Subjective - Date & Time of Evaluation Date of Evaluation: 05/27/18 Time of Evaluation: 07:15 - Subjective Subjective: clinically same Objective - Vital Signs/Intake and Output Vital Signs (last 24 hours): Temp Pulse Resp BP Pulse Ox 99.3 F 101 H 20 120/70 95 05/27/18 08:00 05/27/18 08:00 05/27/18 08:00 05/27/18 09:44 05/27/18 08:00 Intake and Output: 05/27/18 05/27/18 06:59 18:59 Intake Total 350 Balance 350 - Medications Medications: Current Medications Chlordiazepoxide (Librium) 25 mg PO TID PRN PRN Reason: tremor Last Admin: 05/26/18 18:53 Dose: 25 mg Furosemide (Lasix) 40 mg IVP DAILY [facility] Last Admin: 05/27/18 09:44 Dose: 40 mg Lactulose (Enulose) 20 gm PO HS [facility] Last Admin: 05/26/18 21:58 Dose: 20 gm Pantoprazole Sodium (Protonix Ec Tab) 40 mg PO DAILY [facility] Last Admin: 05/27/18 09:44 Dose: 40 mg - Labs Labs: 05/27/18 07:10 05/27/18 07:10 PT 16.7 SECONDS (9.7-12.2) H 05/23/18 22:07 INR 1.5 05/23/18 22:07 APTT 38 SECONDS (21-34) H 05/23/18 22:07 - Constitutional Appears: Well - Head Exam Head Exam: ATRAUMATIC, NORMAL INSPECTION, NORMOCEPHALIC - Eye Exam Eye Exam: EOMI, Normal appearance, PERRL Pupil Exam: NORMAL ACCOMODATION, PERRL - ENT Exam ENT Exam: Mucous Membranes Moist, Normal Exam - Neck Exam Neck Exam: Full ROM, Normal Inspection. absent: Lymphadenopathy - Respiratory Exam Respiratory Exam: Decreased Breath Sounds - Cardiovascular Exam Cardiovascular Exam: REGULAR RHYTHM, +S1, +S2 - GI/Abdominal Exam GI & Abdominal Exam: Soft, Diminished Bowel Sounds - Rectal Exam Rectal Exam: Deferred Assessment and Plan (1) Ascites due to alcoholic cirrhosis Status: Acute (2) Liver failure Status: Acute (3) Transaminitis Status: Acute (4) Alcoholism /alcohol abuse Status: Chronic (5) Abdominal pain Status: Acute (6) Alcohol abuse Status: Acute (7) Alcohol intoxication Status: Acute (8) Anxiety Status: Acute (9) Auditory hallucinations Status: Acute (10) Left against medical advice Status: Acute (11) Panic attack Status: Acute (12) Psychosis Status: Acute (13) Rhabdomyolysis Status: Acute (14) UTI (urinary tract infection) Status: Acute - Assessment and Plan (Free Text) Plan: Status post ascites stepping family is bedside Continue Lasix alcohol seizures and advised GI consult Possible discharge planning tomorrow Abdominal pain decreased significantly patient agrees to not drinking anymore patient understand the concept
--- NOTE | 2018-05-27 13:38 | US ---
Date of Procedure: 05/26/2018 PROCEDURE: Ultrasound-guided paracentesis, CPT 95270 Medications: 7 cc 1% Lidocaine HISTORY: Ascites, abdominal pain, cirrhosis TECHNIQUE: Following informed consent , the patient was placed supine on the stretcher and the site was marked. A limited abdominal ultrasound was performed that showed a large amount of intra-abdominal fluid. Procedural time out was called and the Pt's abdomen was marked and prepped and draped in the usual sterile fashion. Ultrasound-guided large volume paracentesis performed. A total of 5 liters of straw colored fluid was removed without complication. Fluid specimen was sent for culture, sensitivity, cytology and chemistries. IMPRESSION: Ultrasound-guided large volume paracentesis.
[2018-05-27 15:47] VITALS: BP 131/87; PULSE 112; TEMP 99.2; O2SAT 94
== END 2018-05-27 18:04 | disposition home or self-care (01) | DRG 556 ==
LOC: C.ER 21:29 → C.3T 05-24 00:48 → C.9E 05-24 00:48
PROVIDERS: ADMIT Internal Medicine Nephrology; ATTEND Internal Medicine Nephrology
PROC: 0W9G3ZZ Drainage of Peritoneal Cavity, Percutaneous Approach (ICD-10-PCS; principal; 2018-05-26)
PROC: 0W9G3ZX Drainage of Peritoneal Cavity, Percutaneous Approach, Diagnostic (ICD-10-PCS; 2018-05-26)
PROC: BW40ZZZ Ultrasonography of Abdomen (ICD-10-PCS; 2018-05-26)
DX: K70.31 Alcoholic cirrhosis of liver with ascites (principal); K72.90 Hepatic failure, unspecified without coma; M62.82 Rhabdomyolysis; K70.11 Alcoholic hepatitis with ascites; N39.0 Urinary tract infection, site not specified; F10.20 Alcohol dependence, uncomplicated; F10.229 Alcohol dependence with intoxication, unspecified; F29 Unspecified psychosis not due to a substance or known physiological condition; F41.0 Panic disorder [episodic paroxysmal anxiety]; J45.909 Unspecified asthma, uncomplicated; Y90.0 Blood alcohol level of less than 20 mg/100 ml; F17.210 Nicotine dependence, cigarettes, uncomplicated